=== PATIENT | female | born 1960 | race Caucasian/White ===

== ENCOUNTER → 2021-02-02 14:48 | Outpatient (CLI) | payer SELFPAY ==
[2021-02-02 14:17] VITALS: BMI 19.1
[2021-02-02 17:01] LABS: Free T3 3.3 pg/mL (2.18-3.98); T4 Free Direct 0.84 ng/dL (0.76-1.46); Thyroid Stim Hormone (TSH) 0.48 uIU/mL (0.358-3.74)
== END ==
PROVIDERS: Referring Provider Internal Medicine Endocrinology, Diabetes & Metabolism; Visit Provider Internal Medicine Endocrinology, Diabetes & Metabolism
DX: E04.9 Nontoxic goiter, unspecified (principal)
CPT/HCPCS: 36415; 84439; 84443; 84481